=== PATIENT | male | born 1960 | race Caucasian/White ===

== ENCOUNTER 2020-07-21 06:59 | Day surgery (SDC) | payer MEDICARE, MEDICAID ==
[2020-07-20 15:15] LABS: BASOPHILS % (AUTO) 0.6 % (0-1); EOSINOPHILS # (AUTO) 0.1 X10'3 (0-0.9); EOSINOPHILS % (AUTO) 1.3 % (0-6); HEMATOCRIT 41.6 % (42.0-52.0); HEMOGLOBIN 14.2 g/dl (14.0-17.9); LYMPHOCYTES # (AUTO) 1.7 X10'3 (1.1-4.8); LYMPHOCYTES % (AUTO) 29.7 % (21-51); MEAN CORPUSCULAR HEMOGLOBIN 29.8 PG (27.0-31.0); MEAN CORPUSCULAR HGB CONC 34.1 g/dL (33.0-36.5); MEAN CORPUSCULAR VOLUME 87.6 FL (78-98); MEAN PLATELET VOLUME 9.4 FL (7.4-10.4); MONOCYTES # (AUTO) 0.5 X10'3 (0-0.9); MONOCYTES % (AUTO) 8.3 % (2-12); NEUTROPHILS # (AUTO) 3.4 X10'3 (1.8-7.7); NEUTROPHILS % (AUTO) 60.1 % (42-75); PLATELET COUNT 160 X10'3 (140-440); RED BLOOD COUNT 4.75 X10'6 (4.70-6.10); RED CELL DISTRIBUTION WIDTH 13.6 % (11.5-14.5); WHITE BLOOD COUNT 5.7 X10'3 (4.5-11.0)
[2020-07-20 15:21] LABS: ANION GAP 10 (8-16); BLOOD UREA NITROGEN 22 MG/DL (7-18); BUN/CREATININE RATIO 24.2 (5.4-32.0); CALCIUM 9.2 MG/DL (8.5-10.1); CHLORIDE 106 MMOL/L (99-107); CREATININE 0.91 MG/DL (0.60-1.10); GLUCOSE 93 MG/DL (70-104); SODIUM 144 MMOL/L (135-145); TOTAL CARBON DIOXIDE 27.8 MMOL/L (24-32); eGFR 85 ML/MIN
[2020-07-20 15:24] LABS: PARTIAL THROMBOPLASTIN TIME 23 SECONDS (22-32)
[~2020-07-21] VITALS: Ht 185.4 cm; Wt 84.2 kg
[2020-07-21] VITALS (10 sets, daily range): BP systolic 100–138; BP diastolic 58–81
[2020-07-21] MEDS ORDERED: diphenhydrAMINE 25mg capsule PO PRN (07:15)
[2020-07-21] MEDS ORDERED: normal saline 1,000 ML IV SCH ×2 (07:15→11:20)
[2020-07-21] MEDS ORDERED: LORazepam 0.5 MG tablet PO PRN (07:15)
[2020-07-21] MEDS ORDERED: LIDOcaine/PRILOcaine 5gm cream TP ONE (07:25)
[2020-07-21] MEDS ORDERED: CELE-85 PO (07:26)
[2020-07-21] MEDS ORDERED: TRAM50TA2 PO (07:26)
[2020-07-21] MEDS ORDERED: LISI10TA27 PO (07:26)
[2020-07-21] MEDS ORDERED: ATOR20TA66 PO (07:26)
[2020-07-21] MEDS ORDERED: MULT-1141 PO (07:28)
[2020-07-21] MEDS ORDERED: PROP40TA72 PO (07:28)
[2020-07-21] MEDS ORDERED: verapamil 2.5 mg/ml inj IV ONE (09:21)
[2020-07-21] MEDS ORDERED: midazolam 1 mg/ML 2ml injection ONE (09:21)
[2020-07-21] MEDS ORDERED: heparin 1,000unit/ml 10ml vial 10 ML ONE (09:22)
[2020-07-21] MEDS ORDERED: nitroGLYCERIN-Tridil 50MG/D5W 250 ML IV ONE (09:22)
[2020-07-21] MEDS ORDERED: fentaNYL/PF 50MCG/1 ML 2ML syringe ONE (09:22)
[2020-07-21] MEDS ORDERED: iohexol 350 MG/ML 50ML vial IV ONE (09:22)
[2020-07-21] MEDS ORDERED: iohexol 350MG/ML 100ml bottle IV ONE (09:22)
[2020-07-21] MEDS ORDERED: LIDOcaine 1% (10mg/ml)w/preservative injection 20ml MDV ONE (09:54)
[2020-07-21] MEDS ORDERED: HYDROcodone/acetaminophen 5mg/325mg tablet PO PRN (11:20)
[2020-07-21] MEDS ORDERED: HYDROcodone/acetaminophen 10/325mg tab PO PRN (11:20)
--- NOTE | 2020-07-21 13:00 | NUR ---
Patient attempted to self-cath while lying flat post-cath, unable to do so. Called Dr. Macias as patient stated he needs to stand up to cath himself. Dr. Macias said to hold pressure to the right groin cath site while patient stood up to self-cath. Patient able to cath himself standing up, 300ml out. Right groin site CDI, no bleeding or hematoma noted. Patient back in bed.
== END 2020-07-21 16:00 | disposition home or self-care (01) ==
LOC: SSTAY O 06:59
PROVIDERS: ATTEND Internal Medicine Cardiovascular Disease
DX: R07.9 Chest pain, unspecified (principal); I25.10 Atherosclerotic heart disease of native coronary artery without angina pectoris; I10 Essential (primary) hypertension; E78.5 Hyperlipidemia, unspecified; Z79.899 Other long term (current) drug therapy; F41.9 Anxiety disorder, unspecified; Z98.890 Other specified postprocedural states; Z87.891 Personal history of nicotine dependence
CPT/HCPCS: 36415; 76937; 80048; 85025; 85610; 85730; 93005; 93458; 99152; 99153; C1760; C1769; C1894; J1644; J2001; J2250; J3010; J7030; Q0163; Q9967; A4620; A5120; A6258; J3490

== ENCOUNTER 2022-12-14 16:49 | Emergency (ER) | payer MEDICARE, MEDICAID ==
[~2022-12-14] VITALS: Ht 185.4 cm; Wt 89.6 kg
[~2022-12-14 16:49] MED LIST: ATOR20TA66 PO; CELE-127 PO; LISI10TA27 PO; MULT-1141 PO; PROP40TA72 PO; TRAM50TA2 PO
[2022-12-14 17:10] VITALS: RESP 22; TEMP 98.3
[2022-12-14] MEDS ORDERED: ondansetron/PF 4mg/2ml inj IV ONE (17:55)
[2022-12-14] MEDS ORDERED: morphine 4 MG/ML inj SYRINge IV ONE (17:55)
[2022-12-14] MEDS ORDERED: iohexol 300mg/ml 100ml inj. ONE (18:07)
[2022-12-14 18:09] LABS: BASOPHILS # (AUTO) 0.2 X10'3 (0-0.2); EOSINOPHILS # (AUTO) 0.1 X10'3 (0-0.9); EOSINOPHILS % (AUTO) 1.3 % (0-6); HEMATOCRIT 40.4 % (42.0-52.0); LYMPHOCYTES # (AUTO) 1.1 X10'3 (1.1-4.8); LYMPHOCYTES % (AUTO) 12.2 % (21-51); MEAN CORPUSCULAR HEMOGLOBIN 30.5 PG (27.0-31.0); MEAN CORPUSCULAR HGB CONC 34.7 g/dL (33.0-36.5); MEAN CORPUSCULAR VOLUME 87.7 FL (78-98); MONOCYTES # (AUTO) 0.7 X10'3 (0-0.9); MONOCYTES % (AUTO) 7.3 % (2-12); NEUTROPHILS % (AUTO) 77.2 % (42-75); PLATELET COUNT 180 X10'3 (140-440)
[2022-12-14 18:21] LABS: ALANINE AMINOTRANSFERASE 24 U/L (12-78); ALBUMIN/GLOBULIN RATIO 1.1 (1.1-1.5); ALKALINE PHOSPHATASE 69 IU/L (46-116); ANION GAP 12 (8-16); ASPARTATE AMINO TRANSFERASE 17 U/L (10-37); BILIRUBIN,TOTAL 1.4 MG/DL (0.1-1.0); BLOOD UREA NITROGEN 24 MG/DL (7-18); BUN/CREATININE RATIO 22.6 (10.0-20.0); CALCIUM 9.7 MG/DL (8.5-10.1); CHLORIDE 102 MMOL/L (99-107); CREATININE 1.06 MG/DL (0.60-1.10); GLUCOSE 122 MG/DL (70-104); POTASSIUM 4.1 MMOL/L (3.5-5.1); SODIUM 137 MMOL/L (135-145); TOTAL CARBON DIOXIDE 22.8 MMOL/L (24-32); TOTAL PROTEIN 7.6 G/DL (6.4-8.2); eCRCL 81 ML/MIN; eGFR 71 ML/MIN
[2022-12-14 18:25] LABS: LIPASE 16 U/L (16-77)
[2022-12-14 20:35] VITALS: BP 150/56; PULSE 73; O2SAT 99
== END 2022-12-14 20:38 | disposition home or self-care (01) ==
LOC: ER 16:50
DX: N20.1 Calculus of ureter (principal); Z79.899 Other long term (current) drug therapy
CPT/HCPCS: 36415; 74177; 80053; 83690; 85025; 99285; J3490; Q9967

== ENCOUNTER 2024-12-27 15:41 | Emergency (ER) | payer MEDICARE, MEDICAID ==
[~2024-12-27] VITALS: Ht 185.4 cm; Wt 85.6 kg
[~2024-12-27 15:41] MED LIST changes: +APIX5TAB3 PO; -CELE-127 PO; -MULT-1141 PO
[2024-12-27 15:44] VITALS: TEMP 97.3
[2024-12-27] MEDS: dexamethasone sod phosphate 10mg/ml inj IM STA (17:17)
--- NOTE | 2024-12-27 17:50 | Physician Documentation ---
History of Present Illness ~ Chief Complaint: Back Pain Stated Complaint: BACK PAIN/UNABLE TO WALK Time Seen by MD: 16:52 OK to notify your PCP?: Yes Primary Medical Doctor: Dr Ortiz Source: patient Mode of Arrival: POV Exam Limitations: no limitations HPI Reports having low back pain upon awaking this morning and was unable to stand up straight. He is having right low back pain which radiates into his right hip. He has already taken his prescribed tramadol, lidocaine patch and 2 Tylenol without relief. He does have a history of sciatica in tried doing his sciatica stretches without relief. He has seen Dr. Ramirez in the past and was prescribed physical therapy but this worsened his symptoms. He has yet to see Dr. Ramirez again for possible spinal injections. He does have a history of spina bifida. Denies any saddle anesthesia or loss of bowel or bladder. Medication Reconciliation Allergies: Coded Allergies: No Known Allergies (Unverified , 12/27/24) Scheduled Apixaban (Eliquis), 5 MG PO BID Atorvastatin Calcium (Atorvastatin Calcium), 1 TAB PO DAILY, (Reported) Lisinopril (Lisinopril), 1 TAB PO DAILY, (Reported) Propranolol Hcl* (Inderal*), 1 TAB PO BID, (Reported) Scheduled PRN Tramadol Hcl (Tramadol Hcl), 1 TAB PO DAILY PRN for pain, (Reported) Past Medical History Patient History: FH: lymphoma BROTHER FH: myocardial infarction FATHER, , Age: 73 FH: pancreatic cancer BROTHER, , Age: 55 Alcohol Use: None Drug Use: marijuana Lives with: Alone Lives In: Home Review of Systems All Other Systems at this time: Reviewed and Negative Physical Exam Physical Exam Vital Signs: RN Vital Signs have been reviewed: Yes, Temperature: 97.3, Source: Temporal, Heart Rate: 60, Respiratory Rate: 20, BP: 144/108, Pulse Oximetry: 99, Weight: 85.600 Oxygen Flow Rate: 0 Pulse Oximetry Reflects: adequate oxygenation Physical Exam General: Alert, no distress. HEENT: No injection, moist mucous membranes. Neck: Full range of motion. Respiratory: No respiratory distress, equal chest rise and fall. Chest: No accessory muscle use. Cardiovascular: Regular rate and rhythm. Gastrointestinal: Nondistended. Back: Tenderness to palpation of left lumbar sacral spine and paraspinal area. Has spina bifida with lipoma. Able to stand up straight on exam. Extremities: Normal range of motion, no deformity. Neurologic: Oriented x4. Psychiatric: Normal mood and affect. Skin: Normal color, warm and dry. Progress Results/Orders Reviewed/noted all lab results: Yes Results/Orders Completed Orders - KATELIN HURTADO [employer] Dexamethasone Inj (Decadron 10mg/Ml Inj) (12/27/24 17:05) Medications Received in ER Medications (Trade) Dose Ordered Sig/Eduard Route PRN Reason Start Time Stop Time Status Last Admin Dose Admin (Decadron 10mg/ ml inj) 10 mg ONCE STAT IM 12/27/24 17:05 12/27/24 17:06 DC 12/27/24 17:17 10 MG Vital Signs 12/27/24 15:44 Temp 97.3 Pulse 60 Resp 20 B/P (MAP) 144/108 Pulse Ox 99 O2 Flow Rate 0 Medical Decision Making Additional information obtaine: old records Findings Physical exam reveals some tenderness to palpation of the right appears final area as well as lumbar spine. He was able to stand up on exam and stand up straight but this does cause pain. We discussed that he did drive himself today so that limits some of our treatment options such as muscle relaxers or Valium. Reports that the pain feels like his normal sciatica pain but much worse. I discussed this case with VIDHI Obrien and she agrees to give a steroid and see if this helps his pain. Ordered 10 mg dexamethasone IM. Patient verbalizes relief from pain in his able to walk out of department. Patient requesting to be discharged. Differential Dx:Considerations: AAA, Aortic dissection, , Appendicitis, Cholelithiasis, Fracture, Musculoskeletal pain, Pyelonephritis, Strain, Urinary obstruction, Urolithiasis, Ovarian torsion, Renal infarction, Urinary tract infection Departure Disposition: 01 HOME / SELF CARE / HOMELESS Impression: Primary Impression: Chronic back pain Condition: Stable Discharge Instructions: Chronic Back Pain Additional Instructions: Follow up with her primary care provider in the next week and return back here for any new or worsening symptoms. Referrals: NO PRIMARY CARE PROVIDER (PCP) Education Educated: Patient Educated regarding: diagnosis, treatment, prognosis, need for follow up Additional Comment Medical Screen Exam This patient recieved a medical screening examination. After reviewing the individual's medical complaints with presenting symptoms and performing an appropriate physical examination, it was determined that no immediate life- threatening emergency medical condition is present. This individual is also not a women having contractions. Signature Scribe Signature: . Attestation: Scribed for Katelin Hurtadop by Katelin Diaz NP . 12/27/24 17:56 Parts of this note were created using [employer] voice recognition software program. While efforts were made to correct any mistakes made by this voice recognition software program, nonsensical phrases may remain in this note. In addition, there may be errors and syntax, grammar, content and spelling. KATELIN HURTADOP Dec 27, 2024 17:50
[2024-12-27 17:59] VITALS: BP 126/76; PULSE 55; RESP 16; O2SAT 97
== END 2024-12-27 18:02 | disposition home or self-care (01) ==
LOC: ER 15:42
DX: G89.29 Other chronic pain (principal); M54.50 Low back pain, unspecified; F12.90 Cannabis use, unspecified, uncomplicated; Z79.899 Other long term (current) drug therapy; Z60.2 Problems related to living alone
CPT/HCPCS: 96372; 99283; J1100